=== PATIENT | female | born 1960 | race Caucasian/White ===

== ENCOUNTER 2020-05-30 11:10 | Inpatient (IN) | payer BC, OTHER, SELFPAY ==
[~2020-05-30] VITALS: Ht 154.9 cm; Wt 63.6 kg
[2020-05-30 12:09] LABS: BASOPHILS # (AUTO) 0.1 X10'3 (0-0.2); BASOPHILS % (AUTO) 1.3 % (0-1); EOSINOPHILS % (AUTO) 0.2 % (0-6); HEMOGLOBIN 11.1 g/dl (12.0-16.0); LYMPHOCYTES # (AUTO) 0.8 X10'3 (1.1-4.8); LYMPHOCYTES % (AUTO) 14.1 % (21-51); MEAN CORPUSCULAR HEMOGLOBIN 33.6 PG (27.0-31.0); MEAN CORPUSCULAR HGB CONC 35.8 g/dL (33.0-36.5); MEAN CORPUSCULAR VOLUME 93.8 FL (78-98); MEAN PLATELET VOLUME 7.9 FL (7.4-10.4); MONOCYTES # (AUTO) 0.6 X10'3 (0-0.9); MONOCYTES % (AUTO) 9.8 % (2-12); NEUTROPHILS # (AUTO) 4.3 X10'3 (1.8-7.7); NEUTROPHILS % (AUTO) 74.6 % (42-75); PLATELET COUNT 531 X10'3 (140-440); RED BLOOD COUNT 3.31 X10'6 (4.20-5.60); RED CELL DISTRIBUTION WIDTH 14.8 % (11.5-14.5); WHITE BLOOD COUNT 5.8 X10'3 (4.5-11.0)
[2020-05-30 12:58] LABS: ALANINE AMINOTRANSFERASE 18 U/L (12-78); ALBUMIN 3.7 G/DL (3.4-5.0); ALBUMIN/GLOBULIN RATIO 0.9 (1.1-1.5); ALKALINE PHOSPHATASE 80 IU/L (46-116); ANION GAP 9 (8-16); ASPARTATE AMINO TRANSFERASE 16 U/L (10-37); BILIRUBIN,TOTAL 0.4 MG/DL (0.1-1.0); BLOOD UREA NITROGEN 6 MG/DL (7-18); BUN/CREATININE RATIO 6.5 (6.6-38.0); CALCIUM 9.1 MG/DL (8.5-10.1); CHLORIDE 86 MMOL/L (99-107); CREATININE 0.92 MG/DL (0.40-0.90); GLUCOSE 149 MG/DL (70-104); SODIUM 124 MMOL/L (135-145); TOTAL CARBON DIOXIDE 28.9 MMOL/L (24-32); TOTAL PROTEIN 7.9 G/DL (6.4-8.2); eGFR 62 ML/MIN
[2020-05-30 13:05] LABS: POTASSIUM 2.6 MMOL/L (3.5-5.1)
[2020-05-30] MEDS ORDERED: potassium Cl 20 mEq SR tablet PO STA (14:06)
[2020-05-30] MEDS ORDERED: normal saline 1000ml 1,000 ML IV ONE (14:10)
[2020-05-30] MEDS ORDERED: ondansetron/PF 4mg/2ml inj IV ONE (14:10)
[2020-05-30] MEDS ORDERED: morphine 4 MG/ML inj SYRINge IV ONE ×2 (14:10→17:20)
[2020-05-30] MEDS ORDERED: PANT-47 PO (19:15)
[2020-05-30] MEDS ORDERED: LORA-269 PO (19:16)
[2020-05-30] MEDS ORDERED: AMLO5TAB PO (19:17)
[2020-05-30] MEDS ORDERED: DESV25TA2 (19:18)
[2020-05-30] MEDS ORDERED: magnesium 2GM in 50ml NS 50 ML IV PRN (20:15)
[2020-05-30] MEDS ORDERED: potassium CL 10mEq/100ml bag 100 ML IV PRN ×2 (20:15)
[2020-05-30] MEDS ORDERED: ondansetron/PF 4mg/2ml inj IV PRN (20:15)
[2020-05-30] MEDS ORDERED: magnesium 4gm in 100ml NS 100 ML IV PRN (20:15)
[2020-05-30] MEDS ORDERED: potassium Cl 20 mEq SR tablet PO PRN (20:15)
[2020-05-30] MEDS ORDERED: magnesium Cl slow-release 64mg tablet PO PRN (20:15)
--- NOTE | 2020-05-30 22:44 | NUR ---
pt is aware of her current order to be bedrest. pt is insistant that she ambulate to and from the bathroom. this rn throughly explained the risks of this due to pt having a current brain bleed and explained why the pt has a bedrest order. pt is aware and continues to insist on ambulating to bathroom. is calm and cooperative during this discussion. pt will continue to ambulate to bathroom and back to room on her own. will continue to monitor.
[2020-05-30] MEDS: potassium Cl 20 mEq SR tablet PO PRN (22:56)
[2020-05-30] MEDS: normal saline 1000ml 1,000 ML IV SCH (23:25)
--- NOTE | 2020-05-30 23:31 | NUR ---
pt requesting something for pain. dr morton made aware and states she will put orders in. no new orders at this time. will continue to monitor
--- NOTE | 2020-05-31 00:29 | NUR ---
called hospitalist selene regarding pt continuing to complain of pain with no pain meds available. received verbal order for: 1mg morphine IV q3h PRN severe pain and norco5/325 1 tab [id number] PRN moderate pain
[2020-05-31] MEDS ORDERED: morphine 2 MG/ML inj. syringe IV PRN (00:30)
[2020-05-31] MEDS ORDERED: HYDROcodone/acetaminophen 5mg/325mg tablet PO PRN (00:30)
[2020-05-31 01:24] LABS: BASOPHILS # (AUTO) 0.1 X10'3 (0-0.2); BASOPHILS % (AUTO) 1.4 % (0-1); EOSINOPHILS # (AUTO) 0.1 X10'3 (0-0.9); HEMATOCRIT 28.4 % (35.0-45.0); LYMPHOCYTES # (AUTO) 1.2 X10'3 (1.1-4.8); LYMPHOCYTES % (AUTO) 22.2 % (21-51); MEAN CORPUSCULAR HEMOGLOBIN 33.3 PG (27.0-31.0); MEAN CORPUSCULAR HGB CONC 35.2 g/dL (33.0-36.5); MEAN CORPUSCULAR VOLUME 94.7 FL (78-98); MEAN PLATELET VOLUME 8.6 FL (7.4-10.4); MONOCYTES # (AUTO) 0.7 X10'3 (0-0.9); MONOCYTES % (AUTO) 13.2 % (2-12); NEUTROPHILS # (AUTO) 3.5 X10'3 (1.8-7.7); NEUTROPHILS % (AUTO) 62.2 % (42-75); PLATELET COUNT 449 X10'3 (140-440); RED CELL DISTRIBUTION WIDTH 15.1 % (11.5-14.5); WHITE BLOOD COUNT 5.6 X10'3 (4.5-11.0)
[2020-05-31 01:45] LABS: ALBUMIN 3.3 G/DL (3.4-5.0); ANION GAP 5 (8-16); BLOOD UREA NITROGEN 4 MG/DL (7-18); BUN/CREATININE RATIO 5.5 (6.6-38.0); CALCIUM 8.7 MG/DL (8.5-10.1); CHLORIDE 94 MMOL/L (99-107); CREATININE 0.73 MG/DL (0.40-0.90); GLUCOSE 113 MG/DL (70-104); MAGNESIUM 1.7 MG/DL (1.5-2.4); POTASSIUM 3.4 MMOL/L (3.5-5.1); SODIUM 128 MMOL/L (135-145); TOTAL CARBON DIOXIDE 29.5 MMOL/L (24-32); eGFR 81 ML/MIN
[2020-05-31] MEDS: potassium Cl 20 mEq SR tablet PO PRN (03:08)
--- NOTE | 2020-05-31 07:11 | NUR ---
Pt ambulated to restroom without any difficulty. Pt insistant on ambulating to restroom, dispite bedrest status.
[2020-05-31 07:23] LABS: ALBUMIN 3.1 G/DL (3.4-5.0); ANION GAP 5 (8-16); BLOOD UREA NITROGEN 4 MG/DL (7-18); BUN/CREATININE RATIO 5.7 (6.6-38.0); CALCIUM 9.7 MG/DL (8.5-10.1); CHLORIDE 96 MMOL/L (99-107); GLUCOSE 106 MG/DL (70-104); POTASSIUM 4.5 MMOL/L (3.5-5.1); SODIUM 130 MMOL/L (135-145); TOTAL CARBON DIOXIDE 29.5 MMOL/L (24-32); eGFR 85 ML/MIN
[2020-05-31] MEDS ORDERED: K and/or MAG REPLACEMENT MC SCH (08:00)
[2020-05-31] MEDS: normal saline 1000ml 1,000 ML IV SCH (09:15)
--- NOTE | 2020-05-31 09:18 | NUR ---
Pt back from MRI, alert and oriented. Denies headache, moves all extremities equal.
[2020-05-31 09:20] VITALS: BP 126/70
--- NOTE | 2020-05-31 10:22 | NUR ---
SPOKE WITH DR BALLARD AT THIS TIME VIA TELEPHONE TO INFORM HIM MRI IS RESULTED AND PATIENT'S HEADACHE HAS RESOLVED, DENIES DIZZINESS UPON AMBULATION AND IS REQUESTING TO BE DISCHARGED HOME. MD TO ASSESS PATIENT AT BEDSIDE, PATIENT UPDATED.
[2020-05-31] MEDS ORDERED: ONDA4TAB6 PO (10:44)
== END 2020-05-31 11:25 | disposition home or self-care (01) | DRG 86 ==
LOC: ER 11:10 → ED HOLD 20:14
PROVIDERS: ADMIT Internal Medicine; ATTEND Family Medicine
DX: S06.6X0A Traumatic subarachnoid hemorrhage without loss of consciousness, initial encounter (principal); E87.1 Hypo-osmolality and hyponatremia; D46.9 Myelodysplastic syndrome, unspecified; E86.9 Volume depletion, unspecified; E87.6 Hypokalemia; F12.90 Cannabis use, unspecified, uncomplicated; F41.9 Anxiety disorder, unspecified; I10 Essential (primary) hypertension; K21.9 Gastro-esophageal reflux disease without esophagitis; X58.XXXA Exposure to other specified factors, initial encounter; Z66 Do not resuscitate; F32.9 Major depressive disorder, single episode, unspecified; Z79.899 Other long term (current) drug therapy
CPT/HCPCS: 36415; 70450; 70551; 71045; 80048; 80053; 83735; 83880; 84484; 85025; 85610; 93005; 96374; 99291; G0378; J2270; J2405; J7030

== ENCOUNTER 2024-06-10 11:27 | Emergency (ER) | payer MEDICARE, BC ==
[~2024-06-10] VITALS: Ht 154.9 cm; Wt 70.0 kg
[~2024-06-10 11:27] MED LIST: AMLO5TAB PO; PANT-47 PO
[2024-06-10 11:39] VITALS: TEMP 98.4
[2024-06-10] MEDS ORDERED: CYCL10TA27 PO (14:36)
[2024-06-10] MEDS: ketorolac trometh 15mg/ml vial 15 MG/ML ML IM ONE (14:54)
[2024-06-10 15:02] VITALS: BP 130/74; PULSE 113; RESP 16; O2SAT 97
== END 2024-06-10 15:02 | disposition home or self-care (01) ==
LOC: ER 11:27
DX: S29.012A Strain of muscle and tendon of back wall of thorax, initial encounter (principal); S39.012A Strain of muscle, fascia and tendon of lower back, initial encounter; Z88.2 Allergy status to sulfonamides; Z88.1 Allergy status to other antibiotic agents; X58.XXXA Exposure to other specified factors, initial encounter; Y93.89 Activity, other specified; Y92.89 Other specified places as the place of occurrence of the external cause; Y99.8 Other external cause status
CPT/HCPCS: 71046; 96372; 99283; J1885